=== PATIENT | female | born 1980 | race African-American/Black ===

== ENCOUNTER 2023-09-25 12:12 | Emergency (ER) | payer OTHER, SELFPAY ==
[2023-09-25] VITALS (12 sets, daily range): BP systolic 115–139; BP diastolic 81–99; PULSE 59–74; RESP 16–22; TEMP 36.6–36.7; O2SAT 98–100
--- NOTE | ~2023-09-25 | XR_ITS ---
XR chest 2V Ordering provider: Taisha Louis III, DO History: 43 years Female with . chest pain AND SOB SINCE 1100 TODAY . Comparison: None. FINDINGS: MEDIASTINUM: The cardiac silhouette is not enlarged. LUNGS: No infiltrates, effusions or pneumothorax. OTHER: No free air under the diaphragm. IMPRESSION: No acute cardiopulmonary pathology. Reviewed, dictated and finalized at location A.
--- NOTE | 2023-09-25 12:13 | ECG_ITS ---
Test Date: 2023-09-25 12:16:33 Measurements Intervals [place] Rate: 64 P: 51 IN: 170 QRS: 24 QRSD: 84 T: -15 QT: 406 QTc: 421 Interpretive Statements SINUS RHYTHM T WAVE ABNORMALITY IN ANT/INF LEADS- CONSIDER ISCHEMIA ABNORMAL ECG No previous ECG available for comparison Electronically Signed On 09-25-2023 12:28:52 CDT by Marcus Fonseca D.O.
[2023-09-25] MEDS: ASPIRIN 81 MG CHEWABLE TABLET 324 MG PO (12:43)
--- NOTE | 2023-09-25 12:53 | ED.CHESTPAIN ---
HPI - Chest Pain General Chief Complaint: Chest Pain Stated Complaint: chest pain x 1 hour Time Seen by Provider: 09/25/23 12:49 History of Present Illness HPI narrative: Pt presents with anterior and right sided CP since 1100 today. Pt says it is constant but waxes and wanes in severity. It seems to improve when she stands up or changes position. Pt has never had this before. Pt has no FH of IA and no cardiac hx herself and no risk factors. Related Data Allergies Allergy/AdvReac Type Severity Reaction Status Date / Time No Known Drug Allergies Allergy Verified 09/25/23 12:14 Review of Systems Review of Systems: All systems reviewed & are unremarkable except as noted in HPI and below Exam Const: General: healthy appearing and no acute distress Nutritional Appearance: well nourished Orientation/consciousness: patient oriented x3 Limitations: no limitations Chest: Chest palpation & inspection: normal inspection of the chest and tenderness costochondral junction Resp: Effort & Inspection: normal respiratory effort Auscultation: clear to auscultation bilaterally Cardio: Rate: regular rate Rhythm: regular rhythm GI: GI Palp: Yes Soft to palpation and No Tenderness to palpation present (GI) Auscultation: normal bowel sounds Skin: General skin exam: normal color Rashes: no rashes Wounds: no wounds Neuro: General: patient oriented x3, moves all extremities, no focal motor deficits and CN's II-XI intact bilaterally Speech: normal speech Extrem: General: normal to inspection and no clubbing, cyanosis or edema Psych: Mental Status: mental status grossly normal Affect: normal affect Attitude: cooperative Course Vital Signs Vital signs: Vital Signs Pulse Rate 61 09/25/23 12:29 Respiratory Rate 21 H 09/25/23 12:29 Blood Pressure 125/92 H 09/25/23 12:29 Pulse Oximetry 100 09/25/23 12:29 Temperature 97.9 F 09/25/23 17:07 Pulse Rate 74 09/25/23 17:07 Respiratory Rate 16 09/25/23 17:07 Blood Pressure 136/99 H 09/25/23 17:07 Pulse Oximetry 100 09/25/23 17:07 Oxygen Delivery Room Air 09/25/23 12:35 MDM - Chest Pain MDM Narrative Medical decision making narrative: Pt presents with ant Cp for 2 hrs. reproducible seems like costo chondritis will check labs and serial trops. Trop neg x 2, toradol helped pain home on nsaids Differential Diagnosis Differential diagnosis: Likely pneumothorax, unstable angina pectoris, atypical chest pain, st elevation myocardial infarction, costochondritis and chest pain Lab Data 09/25/23 13:01 09/25/23 13:01 Labs: Lab Results 09/25/23 09/25/23 Range/Units 13:01 15:13 WBC 5.0 (4.5-10.0) K/mm3 RBC 4.59 (4.2-5.4) M/mm3 Hgb 13.9 (12.0-15.0) g/dL Hct 42.5 (37.0-47.0) % MCV 92.6 (80-100) fl MCH 30.3 (26-34) pg MCHC 32.7 (32-36) g/dl RDW 13.4 (11.5-14.5) % Plt Count 138 L (150-375) k/mm3 MPV 13.6 H (7.4-10.4) fl Immature Gran % (Auto) 0.2 (0-0.5) % Neut % (Auto) 62.9 (45.5-73.1) % Lymph % (Auto) 28.1 (18.3-44.2) % [place] % (Auto) 7.0 (2.6-8.5) % Eos % (Auto) 1.0 (0-4.4) % Baso % (Auto) 0.8 (0.2-1.2) % Lymph # (Auto) 1.40 (0.9-3.2) K/mm3 [place] # (Auto) 0.4 (0.1-0.6) K/mm3 Eos # (Auto) 0.1 (0-0.3) K/mm3 Baso # (Auto) 0.0 (0.0-0.1) K/mm3 Abs Immat Gran (auto) 0.01 (0.00-0.031) K/mm3 Absolute Neuts (auto) 3.1 (1.3-6.7) K/mm3 Absolute Nucleated RBC 0.000 (0.0-0.012) K/mm3 Nucleated RBC % 0.0 (0.0-0.2) % % Immature Plt Fraction 18.2 H (0.9-11.2) % PT 13.2 (11.1-14.7) Seconds INR 1.0 APTT 24.8 (22.3-36.8) Seconds Sodium 140 (137-145) mmol/L Potassium 3.7 (3.4-5.0) mmol/L Chloride 106 (98-107) mmol/L Carbon Dioxide 27 (22-30) mmol/L Anion Gap 7 (4-12) mmol/L BUN 10 (7-17) mg/dL Creatinine 0.70 (0.7-1.0) mg/dL Estim Creat Clear Calc 100 ml/min Estimated GFR > 60 (59 - ) Gl
[2023-09-25 13:11] LABS: Basophils Percent Auto 0.8 % (0.2-1.2); Eosinophils Absolute Auto 0.1 K/mm3 (0-0.3); Hematocrit 42.5 % (37.0-47.0); Hemoglobin 13.9 g/dL (12.0-15.0); Immature Granulocyte Absolute 0.01 K/mm3 (0.00-0.031); Immature Granulocyte Percent A 0.2 % (0-0.5); Immature Platelet Fraction Pct 18.2 % (0.9-11.2); Lymphocytes Percent Auto 28.1 % (18.3-44.2); Mean Corpuscular HGB Conc 32.7 g/dl (32-36); Mean Corpuscular Hemoglobin 30.3 pg (26-34); Mean Corpuscular Volume 92.6 fl (80-100); Mean Platelet Volume 13.6 fl (7.4-10.4); Monocytes Absolute Auto 0.4 K/mm3 (0.1-0.6); Neutrophils Absolute Auto 3.1 K/mm3 (1.3-6.7); Neutrophils Percent Auto 62.9 % (45.5-73.1); Platelet Count Result 138 k/mm3 (150-375); Red Blood Count 4.59 M/mm3 (4.2-5.4); Red Cell Distribution Width 13.4 % (11.5-14.5)
[2023-09-25 13:18] LABS: Alanine Aminotransferase 22 U/L (6-35); Albumin Level 4.2 g/dL (3.5-5.1); Alkaline Phosphatase 83 U/L (38-126); Anion Gap 7 mmol/L (4-12); Aspartate Amino Transferase 18 U/L (14-36); Bilirubin,Total 0.5 mg/dL (0.2-1.3); Blood Urea Nitrogen 10 mg/dL (7-17); Calcium 8.9 mg/dL (8.4-10.2); Carbon Dioxide 27 mmol/L (22-30); Chloride 106 mmol/L (98-107); Estimated CRCL calculation 100 ml/min; Estimated Glomerular Filt Rate > 60; Glucose 90 mg/dL (65-110); Lipase 55 U/L (23-300); Potassium 3.7 mmol/L (3.4-5.0); Sodium 140 mmol/L (137-145)
[2023-09-25 13:29] LABS: Troponin I < 0.012 ng/mL (0.000-0.034)
[2023-09-25 13:31] LABS: Prothrombin Time 13.2 Seconds (11.1-14.7)
[2023-09-25 13:32] LABS: Partial Thromboplastin Time 24.8 Seconds (22.3-36.8)
--- NOTE | 2023-09-25 15:18 | ECG_ITS ---
Test Date: 2023-09-25 15:34:31 Measurements Intervals [place] Rate: 62 P: 44 RI: 175 QRS: 22 QRSD: 85 T: -10 QT: 411 QTc: 420 Interpretive Statements SINUS RHYTHM T WAVE ABNORMALITY IN ANT/INF LEADS- CONSIDER ISCHEMIA BASELINE ARTIFACT- I, II, III, AVR, AVL, AVF, V1-V2 ABNORMAL ECG Compared to ECG 09/25/2023 12:16:33 T-wave abnormality still present Electronically Signed On 09-26-2023 08:25:02 CDT by Marcus Fonseca D.O.
[2023-09-25 15:43] LABS: Troponin I < 0.012 ng/mL (0.000-0.034)
== END 2023-09-25 17:09 | disposition home or self-care (01) ==
PROVIDERS: Emergency Provider Emergency Medicine
DX: M94.0 Chondrocostal junction syndrome [Tietze] (principal); R94.31 Abnormal electrocardiogram [ECG] [EKG]
CPT/HCPCS: 36415; 71046; 80053; 83690; 84484; 85025; 85055; 85610; 85730; 93005; 99284; A9270